=== PATIENT | male | born 1975 | race Caucasian/White ===

== ENCOUNTER 2022-12-31 09:27 | Emergency (ER) | payer OTHER ==
[~2022-12-31] VITALS: Ht 182.9 cm; Wt 103.6 kg
[2022-12-31 11:00] VITALS: BP 127/82
[2022-12-31 11:41] LABS: Urine Bacteria NONE SEEN /hpf (None Seen); Urine Blood Negative /uL (Negative); Urine WBC <1 /hpf (0 - 3)
[2022-12-31 11:55] LABS: Basophils # (auto) 0 10 ^3/uL (0-0.2); Basophils % (auto) 0.5 % (0.0-2.0); Eosinophils # (auto) 0.1 10 ^3/uL (0-0.8); Eosinophils % (auto) 2.1 % (0.0-7.0); Hematocrit 46.3 % (41.0-53.0); Hemoglobin 15.5 g/dL (13.5-17.5); Lymphocytes # (auto) 2.2 10 ^3/uL (0.4-5.4); Lymphocytes % (auto) 31.8 % (10.0-50.0); Mean Corpuscular Hemoglobin 30.4 pg (28.0-32.0); Mean Corpuscular Hgb Conc. 33.5 g/dL (32.0-36.0); Monocytes # (auto) 0.6 10 ^3/uL (0-1.3); Monocytes % (auto) 7.8 % (0.0-12.0); Neutrophils # (auto) 4.1 10 ^3/uL (1.6-8.6); Neutrophils % (auto) 57.8 % (37.0-80.0); Nucleated Red Blood Cells % 0.1 %; Red Blood Cells 5.09 10^6/uL (4.5-5.90); White Blood Cell 7.1 10^3/uL (4.4-10.8)
[2022-12-31 12:10] LABS: Calcium 8.7 mg/dL (8.5-10.1); Potassium 4.2 mmol/L (3.5-5.1)
[2022-12-31 12:17] LABS: Albumin 4.1 g/dL (3.4-5.0); BUN/Creatinine Ratio 14.7; Bilirubin, Total 0.7 mg/dL (0.2-1.0); Total Protein 7.8 g/dL (6.4-8.2)
[2022-12-31] MEDS ORDERED: KETOROLAC TROMETH 30 MG/ML 1ML VIAL IM ONE (12:45)
[2022-12-31] MEDS ORDERED: ONDA-144 PO (14:19)
[2022-12-31] MEDS ORDERED: ACET1CAP14 PO (14:19)
[2022-12-31] MEDS ORDERED: IBUP600T28 PO (14:27)
== END 2022-12-31 14:19 | disposition home or self-care (01) ==
LOC: ER 09:27
DX: S46.911A Strain of unspecified muscle, fascia and tendon at shoulder and upper arm level, right arm, initial encounter (principal); K80.20 Calculus of gallbladder without cholecystitis without obstruction; K57.90 Diverticulosis of intestine, part unspecified, without perforation or abscess without bleeding; M25.511 Pain in right shoulder; R94.31 Abnormal electrocardiogram [ECG] [EKG]; X58.XXXA Exposure to other specified factors, initial encounter; Y93.89 Activity, other specified; Y92.89 Other specified places as the place of occurrence of the external cause; Y99.8 Other external cause status
CPT/HCPCS: 36415; 73030; 74176; 76705; 80053; 81001; 83690; 85025; 93005; 96372; 99285; J1885

== ENCOUNTER 2023-11-10 04:23 | Inpatient (IN) | payer MEDICAID, OTHER ==
[~2023-11-10] VITALS: Ht 182.9 cm; Wt 99.6 kg
[~2023-11-10 04:23] MED LIST: ACET1CAP14 PO; IBUP1TAB5 PO; ONDA-144 PO
[2023-11-10 05:05] VITALS: O2SAT 95
[2023-11-10] MEDS ORDERED: MORPHINE SULFATE 4 MG/ML SYR/VIAL IV ONE ×2 (05:15→08:30)
[2023-11-10] MEDS ORDERED: ONDANSETRON HCL 4 MG/2 ML VIAL IV ONE ×2 (05:15→10:45)
[2023-11-10] MEDS ORDERED: SODIUM CHLORIDE 0.9% 1,000 ML IV ONE ×2 (05:30→11:30)
[2023-11-10] MEDS ORDERED: KETOROLAC TROMETH 30 MG/ML 1ML VIAL IV ONE (05:45)
[2023-11-10 05:50] LABS: Basophils # (auto) 0 10 ^3/uL (0-0.2); Basophils % (auto) 0.1 % (0.0-2.0); Eosinophils # (auto) 0.1 10 ^3/uL (0-0.8); Eosinophils % (auto) 0.4 % (0.0-7.0); Hemoglobin 15.6 g/dL (13.5-17.5); Lymphocytes # (auto) 1.5 10 ^3/uL (0.4-5.4); Mean Corpuscular Hemoglobin 30.6 pg (28.0-32.0); Mean Corpuscular Hgb Conc. 33.9 g/dL (32.0-36.0); Mean Corpuscular Volume 90.2 fL (80.0-100.0); Monocytes # (auto) 1.8 10 ^3/uL (0-1.3); Monocytes % (auto) 9.8 % (0.0-12.0); Neutrophils # (auto) 14.9 10 ^3/uL (1.6-8.6); Neutrophils % (auto) 81.7 % (37.0-80.0); Red Cell Distribution Width 13.3 % (11.8-14.3); White Blood Cell 18.2 10^3/uL (4.4-10.8)
[2023-11-10 06:05] LABS: Alanine Aminotransferase 23 U/L (7-40); Albumin 4.7 g/dL (3.2-4.8); Alkaline Phosphatase 50 U/L (46-116); Anion Gap 10 (5-15); Aspartate Aminotransferase 19 U/L (13-40); BUN/Creatinine Ratio 10.8 (10.0-20.0); Bilirubin, Total 2.2 mg/dL (0.2-1.0); Blood Urea Nitrogen 10 mg/dL (9-23); Calcium 9.4 mg/dL (8.7-10.4); Carbon Dioxide 24 mmol/L (20-30); Chloride 103 mmol/L (98-107); Glucose 110 mg/dL (74-106); Lipase 44 U/L (12-53); Potassium 3.6 mmol/L (3.5-5.1); Sodium 137 mmol/L (136-145); Total Protein 7.6 g/dL (5.7-8.2)
[2023-11-10 06:40] LABS: INR 1.17 (0.9-1.15); Partial Thromboplastin Time 30.9 SEC (24.5-34.5); Prothrombin Time 12.2 sec (9.3-11.8)
[2023-11-10 07:28] VITALS: PULSE 92; RESP 16; O2SAT 96
[2023-11-10] MEDS ORDERED: ONDANSETRON ODT 4 MG TAB PO ONE (08:30)
[2023-11-10] MEDS ORDERED: ONDANSETRON HCL 4 MG/2 ML VIAL ONE (10:31)
[2023-11-10] MEDS ORDERED: IOHEXOL 300 MG/ML 100ML BOTTLE IJ ONE ×2 (11:12→13:07)
[2023-11-10] MEDS ORDERED: OMNIPAQUE 12mg/ml 500ml ORAL SOLUTION PO ONE (11:12)
[2023-11-10 11:19] LABS: Urine Bacteria NONE SEEN /hpf (None Seen); Urine Blood Negative /uL (Negative); Urine Clarity Clear (Clear); Urine Color Yellow (Yellow); Urine Mucus FEW (None Seen); Urine Protein, UAD 1+ (Negative); Urine Specific Gravity 1.032 (1.001-1.035); Urine WBC 2 /hpf (0 - 3)
[2023-11-10] MEDS ORDERED: ACETAMINOPHEN 325 MG TAB PO PRN (11:30)
[2023-11-10] MEDS ORDERED: HYDROcodone-ACET 5/325MG TAB PO PRN (11:30)
[2023-11-10] MEDS: KETOROLAC TROMETH 30 MG/ML 1ML VIAL IV PRN ×2 (13:54→21:15)
[2023-11-10 15:48] VITALS: BP 138/84; PULSE 81; RESP 20; TEMP 99.4; O2SAT 97
[2023-11-10 16:00] VITALS: BP 138/84; PULSE 81; RESP 20; TEMP 99.4; O2SAT 97
[2023-11-10] MEDS: metroNIDAZOLE 500MG/100ML 100 ML IV SCH ×2 (16:33→21:09)
[2023-11-10] MEDS: SODIUM CHLORIDE 0.9% 1,000 ML IV SCH (16:33)
[2023-11-10] MEDS: ONDANSETRON HCL 4 MG/2 ML VIAL IV PRN (18:56)
[2023-11-10 20:00] VITALS: PULSE 73; RESP 18; O2SAT 97
[2023-11-10 23:28] VITALS: BP 125/85; PULSE 73; RESP 18; TEMP 98.3; O2SAT 97
[2023-11-11] VITALS (7 sets, daily range): BP systolic 111–139; BP diastolic 67–80; PULSE 76–83; RESP 18–20; TEMP 97.6–98.5; O2SAT 97–100
[2023-11-11] MEDS: metroNIDAZOLE 500MG/100ML 100 ML IV SCH (05:34)
[2023-11-11] MEDS: SODIUM CHLORIDE 0.9% 1,000 ML IV SCH ×5 (05:38→18:56)
[2023-11-11] MEDS: KETOROLAC TROMETH 30 MG/ML 1ML VIAL IV PRN ×2 (06:24→13:02)
[2023-11-11 06:54] LABS: Basophils # (auto) 0 10 ^3/uL (0-0.2); Basophils % (auto) 0.2 % (0.0-2.0); Eosinophils # (auto) 0.2 10 ^3/uL (0-0.8); Eosinophils % (auto) 1.4 % (0.0-7.0); Hematocrit 40.5 % (41.0-53.0); Hemoglobin 13.6 g/dL (13.5-17.5); Lymphocytes % (auto) 8.3 % (10.0-50.0); Mean Corpuscular Hemoglobin 30.7 pg (28.0-32.0); Mean Corpuscular Hgb Conc. 33.7 g/dL (32.0-36.0); Mean Corpuscular Volume 91.2 fL (80.0-100.0); Monocytes # (auto) 1.3 10 ^3/uL (0-1.3); Monocytes % (auto) 10.6 % (0.0-12.0); Neutrophils # (auto) 9.8 10 ^3/uL (1.6-8.6); Neutrophils % (auto) 79.5 % (37.0-80.0); Red Blood Cells 4.44 10^6/uL (4.5-5.90); Red Cell Distribution Width 13.1 % (11.8-14.3); White Blood Cell 12.3 10^3/uL (4.4-10.8)
[2023-11-11 07:13] LABS: Alanine Aminotransferase 95 U/L (7-40); Alkaline Phosphatase 70 U/L (46-116); Anion Gap 7 (5-15); BUN/Creatinine Ratio 15.9 (10.0-20.0); Blood Urea Nitrogen 13 mg/dL (9-23); Calcium 8.4 mg/dL (8.7-10.4); Carbon Dioxide 26 mmol/L (20-30); Chloride 106 mmol/L (98-107); Glucose 88 mg/dL (74-106); Potassium 3.6 mmol/L (3.5-5.1); Sodium 139 mmol/L (136-145)
[2023-11-11 07:14] LABS: Albumin 3.9 g/dL (3.2-4.8); Aspartate Aminotransferase 49 U/L (13-40)
[2023-11-11 07:15] LABS: Bilirubin, Total 1.6 mg/dL (0.2-1.0); Total Protein 6.2 g/dL (5.7-8.2)
[2023-11-11] MEDS: PIPERACILLIN-TAZOB 3.375GM 100 ML IV SCH (17:45)
[2023-11-11] MEDS: ONDANSETRON HCL 4 MG/2 ML VIAL IV PRN (17:46)
[2023-11-11] MEDS: HYDROmorphone HCL 2 MG/ML VL/or syr IV PRN ×2 (17:46→22:11)
[2023-11-12] MEDS: PIPERACILLIN-TAZOB 3.375GM 100 ML IV SCH ×5 (04:13→23:59)
[2023-11-12] MEDS: HYDROmorphone HCL 2 MG/ML VL/or syr IV PRN ×3 (04:29→17:52)
[2023-11-12] MEDS: ONDANSETRON HCL 4 MG/2 ML VIAL IV PRN ×3 (04:29→23:59)
[2023-11-12 05:00] VITALS: BP_SYST 117; BP_SYST 140; BP_DIAS 78; BP_DIAS 98; PULSE 86; RESP 18; RESP 19; TEMP 98.3; TEMP 98.8; O2SAT 94; O2SAT 97
[2023-11-12 07:08] LABS: Basophils # (auto) 0 10 ^3/uL (0-0.2); Basophils % (auto) 0.2 % (0.0-2.0); Eosinophils # (auto) 0.2 10 ^3/uL (0-0.8); Eosinophils % (auto) 1.5 % (0.0-7.0); Hematocrit 38.8 % (41.0-53.0); Hemoglobin 13.2 g/dL (13.5-17.5); Lymphocytes # (auto) 1.1 10 ^3/uL (0.4-5.4); Lymphocytes % (auto) 9.6 % (10.0-50.0); Mean Corpuscular Volume 91.1 fL (80.0-100.0); Monocytes # (auto) 1.1 10 ^3/uL (0-1.3); Monocytes % (auto) 9.3 % (0.0-12.0); Neutrophils # (auto) 9.3 10 ^3/uL (1.6-8.6); Neutrophils % (auto) 79.4 % (37.0-80.0); Red Blood Cells 4.26 10^6/uL (4.5-5.90); White Blood Cell 11.8 10^3/uL (4.4-10.8)
[2023-11-12 07:15] LABS: Alanine Aminotransferase 70 U/L (7-40); Albumin 3.8 g/dL (3.2-4.8); Alkaline Phosphatase 97 U/L (46-116); Anion Gap 9 (5-15); Aspartate Aminotransferase 33 U/L (13-40); BUN/Creatinine Ratio 13.3 (10.0-20.0); Blood Urea Nitrogen 11 mg/dL (9-23); Calcium 8.6 mg/dL (8.5-10.1); Carbon Dioxide 25 mmol/L (20-30); Chloride 107 mmol/L (98-107); Cholesterol 109 mg/dL (< 200); Glucose 86 mg/dL (74-106); HDL Cholesterol 27 mg/dL (40-59); LDL Cholesterol 69 mg/dL (< 100); Potassium 3.7 mmol/L (3.5-5.1); Sodium 141 mmol/L (136-145); Triglycerides 68 mg/dL (< 150)
[2023-11-12 07:16] LABS: Bilirubin, Total 1.1 mg/dL (0.2-1.0); Total Protein 6.2 g/dL (5.7-8.2)
[2023-11-12 08:49] LABS: Lipase 40 U/L (12-53)
[2023-11-12 08:50] LABS: Magnesium 1.9 mg/dL (1.6-2.6)
[2023-11-12 09:00] VITALS: BP 100/79; PULSE 71; RESP 20; TEMP 98; O2SAT 96
[2023-11-12 13:00] VITALS: BP 145/78; PULSE 68; RESP 20; TEMP 98.4; O2SAT 98
[2023-11-12 16:37] VITALS: BP 143/85; PULSE 75; RESP 20; TEMP 98.1; O2SAT 97
[2023-11-12] MEDS: D5W/SOD CHL 0.45%/KCL 20MEQ 1,000 ML IV SCH ×2 (17:53→23:50)
[2023-11-12 22:00] VITALS: BP 148/82; PULSE 76; RESP 18; TEMP 98.4; O2SAT 94
[2023-11-13 05:00] VITALS: BP 132/82; PULSE 72; RESP 18; TEMP 98.2; O2SAT 97
[2023-11-13] MEDS: ONDANSETRON HCL 4 MG/2 ML VIAL IV PRN ×3 (05:52→22:29)
[2023-11-13] MEDS: PIPERACILLIN-TAZOB 3.375GM 100 ML IV SCH ×4 (05:52→23:52)
[2023-11-13] MEDS: HYDROmorphone HCL 2 MG/ML VL/or syr IV PRN ×7 (05:52→22:30)
[2023-11-13 07:57] LABS: Alanine Aminotransferase 56 U/L (7-40); Alkaline Phosphatase 100 U/L (46-116); Anion Gap 9 (5-15); BUN/Creatinine Ratio 7.1 (10.0-20.0); Basophils # (auto) 0.1 10 ^3/uL (0-0.2); Basophils % (auto) 0.3 % (0.0-2.0); Blood Urea Nitrogen 6 mg/dL (9-23); Carbon Dioxide 26 mmol/L (20-30); Chloride 103 mmol/L (98-107); Eosinophils # (auto) 0.6 10 ^3/uL (0-0.8); Eosinophils % (auto) 3.1 % (0.0-7.0); Glucose 82 mg/dL (74-106); Hematocrit 45.7 % (41.0-53.0); Hemoglobin 15.2 g/dL (13.5-17.5); Lymphocytes # (auto) 2.4 10 ^3/uL (0.4-5.4); Lymphocytes % (auto) 13.3 % (10.0-50.0); Mean Corpuscular Hemoglobin 30.9 pg (28.0-32.0); Mean Corpuscular Hgb Conc. 33.3 g/dL (32.0-36.0); Mean Corpuscular Volume 92.7 fL (80.0-100.0); Monocytes # (auto) 1.5 10 ^3/uL (0-1.3); Monocytes % (auto) 8.4 % (0.0-12.0); Neutrophils # (auto) 13.7 10 ^3/uL (1.6-8.6); Neutrophils % (auto) 74.9 % (37.0-80.0); Nucleated Red Blood Cells % 0.2 %; Red Blood Cells 4.93 10^6/uL (4.5-5.90); Red Cell Distribution Width 12.9 % (11.8-14.3); Sodium 138 mmol/L (136-145); White Blood Cell 18.3 10^3/uL (4.4-10.8)
[2023-11-13 07:58] LABS: Magnesium 2.2 mg/dL (1.6-2.6)
[2023-11-13 07:59] LABS: Albumin 4.5 g/dL (3.2-4.8); Aspartate Aminotransferase 30 U/L (13-40)
[2023-11-13 08:00] VITALS: RESP 17
[2023-11-13 08:00] LABS: Bilirubin, Total 1.3 mg/dL (0.2-1.0); Total Protein 7.5 g/dL (5.7-8.2)
[2023-11-13 09:00] VITALS: BP 128/77; PULSE 67; RESP 18; TEMP 98.1; O2SAT 97
[2023-11-13 09:23] LABS: Platelet Estimate Adequate; RBC Morphology Normal
[2023-11-13] MEDS ORDERED: SUCCINYLCHOLINE CHLORIDE 20 MG/ML 10ML VIAL IV ONE (10:27)
[2023-11-13] MEDS ORDERED: MIDAZOLAM HCL 2MG/2ML 2ml VIAL (1mg/ml) ONE (10:29)
[2023-11-13] MEDS ORDERED: MEPERIDINE HCL (25 MG/ML) 1ML VIAL ONE (10:29)
[2023-11-13] MEDS ORDERED: fentaNYL CITRATE 100 MCG/2 ML VL ONE (10:29)
[2023-11-13] MEDS ORDERED: DexAMETHasone SOD PHOS 10MG/1ML VIAL INJ ONE (10:29)
[2023-11-13] MEDS ORDERED: PROPOFOL 10 MG/ML 20 ML IV ONE (10:59)
[2023-11-13] MEDS ORDERED: KETOROLAC TROMETH 30 MG/ML 1ML VIAL IV ONE (11:00)
[2023-11-13] MEDS ORDERED: MORPHINE SULFATE 4 MG/ML SYR/VIAL IV PRN (11:00)
[2023-11-13] MEDS ORDERED: ePHEDrine SULFATE 50 MG/ML AMP IV PRN (11:00)
[2023-11-13] MEDS ORDERED: LABETALOL HCL 5 MG/ML 4ML SYRINGE IV PRN (11:00)
[2023-11-13] MEDS ORDERED: MIDAZOLAM HCL 2MG/2ML 2ml VIAL (1mg/ml) IV PRN (11:00)
[2023-11-13] MEDS ORDERED: ONDANSETRON HCL 4 MG/2 ML VIAL IV PRN (11:00)
[2023-11-13] MEDS ORDERED: SUGAMMADEX 200mg/2ml Vial (100MG/ML) IV ONE (11:24)
[2023-11-13 11:46] VITALS: O2SAT 95
[2023-11-13] MEDS: D5W/SOD CHL 0.45%/KCL 20MEQ 1,000 ML IV SCH ×2 (13:32→20:05)
[2023-11-13 16:53] VITALS: BP 139/93; PULSE 65; RESP 20; TEMP 98.4; O2SAT 97
[2023-11-13 22:00] VITALS: BP 133/78; PULSE 68; RESP 19; TEMP 98.4; O2SAT 100
[2023-11-14] MEDS: D5W/SOD CHL 0.45%/KCL 20MEQ 1,000 ML IV SCH ×2 (04:25→12:45)
[2023-11-14] MEDS: ONDANSETRON HCL 4 MG/2 ML VIAL IV PRN ×2 (04:27→11:50)
[2023-11-14] MEDS: HYDROmorphone HCL 2 MG/ML VL/or syr IV PRN ×2 (04:28→11:49)
[2023-11-14 05:00] VITALS: BP 135/82; PULSE 67; RESP 20; TEMP 97.8; O2SAT 97
[2023-11-14] MEDS: PIPERACILLIN-TAZOB 3.375GM 100 ML IV SCH ×2 (05:43→12:00)
[2023-11-14 06:55] LABS: Basophils # (auto) 0 10 ^3/uL (0-0.2); Basophils % (auto) 0.1 % (0.0-2.0); Eosinophils # (auto) 0 10 ^3/uL (0-0.8); Hematocrit 42.5 % (41.0-53.0); Hemoglobin 14.1 g/dL (13.5-17.5); Lymphocytes # (auto) 0.8 10 ^3/uL (0.4-5.4); Lymphocytes % (auto) 6.5 % (10.0-50.0); Mean Corpuscular Hemoglobin 29.9 pg (28.0-32.0); Mean Corpuscular Hgb Conc. 33.1 g/dL (32.0-36.0); Mean Corpuscular Volume 90.3 fL (80.0-100.0); Monocytes % (auto) 8.3 % (0.0-12.0); Neutrophils # (auto) 10.7 10 ^3/uL (1.6-8.6); Neutrophils % (auto) 85.1 % (37.0-80.0); Red Cell Distribution Width 12.8 % (11.8-14.3); White Blood Cell 12.6 10^3/uL (4.4-10.8)
[2023-11-14 07:22] LABS: Alanine Aminotransferase 43 U/L (7-40); Albumin 4.1 g/dL (3.2-4.8); Alkaline Phosphatase 80 U/L (46-116); Anion Gap 5 (5-15); Aspartate Aminotransferase 16 U/L (13-40); BUN/Creatinine Ratio 7.4 (10.0-20.0); Blood Urea Nitrogen 6 mg/dL (9-23); Calcium 8.7 mg/dL (8.7-10.4); Carbon Dioxide 30 mmol/L (20-30); Chloride 102 mmol/L (98-107); Glucose 153 mg/dL (74-106); Lipase 33 U/L (12-53); Potassium 3.9 mmol/L (3.5-5.1); Sodium 137 mmol/L (136-145)
[2023-11-14 07:23] LABS: Bilirubin, Total 0.6 mg/dL (0.2-1.0); Total Protein 6.9 g/dL (5.7-8.2)
[2023-11-14 08:00] VITALS: RESP 17
[2023-11-14 09:00] VITALS: BP 123/74; PULSE 66; RESP 20; TEMP 98.4; O2SAT 97
[2023-11-14] MEDS ORDERED: CEPH500C PO (11:30)
[2023-11-14] MEDS ORDERED: HYDR-4902 PO (11:30)
[2023-11-14 12:20] VITALS: TEMP 36.9
[2023-11-14 12:53] VITALS: BP 122/84; PULSE 75; RESP 18; TEMP 98.2; O2SAT 96
== END 2023-11-14 13:54 | disposition home or self-care (01) | DRG 263 ==
LOC: ER 04:23 → EDUNIT# 04:23 → EDBD 04:23 → OVERFLOW 11:29 → WEST WING 14:48
PROVIDERS: ADMIT Nurse Practitioner Family; ATTEND Internal Medicine Geriatric Medicine
PROC: 0FT44ZZ Resection of Gallbladder, Percutaneous Endoscopic Approach (ICD-10-PCS; principal; 2023-11-13 10:32)
DX: K80.67 Calculus of gallbladder and bile duct with acute and chronic cholecystitis with obstruction (principal); K76.0 Fatty (change of) liver, not elsewhere classified
CPT/HCPCS: 36415; 74177; 74181; 76705; 80053; 80061; 81001; 83690; 83735; 84484; 85025; 85610; 85730; 86850; 86900; 86901; 87070; 87075; 87205; 93005; 96361; 96374; 96375; 96376; G0378; J0330; J1100; J1885; J2250; J2405; J2543; J2704; J3490; Q0162